=== PATIENT | female | born 1955 | race Hispanic/Latino ===

== ENCOUNTER 2024-05-20 07:10 | Observation (INO) | payer OTHER ==
[2024-05-18 13:03] LABS: BASOPHILS # (AUTO) 0.05 K/uL (0.00-0.20); BASOPHILS % (AUTO) 0.7 % (0.0-5.0); EOSINOPHILS # (AUTO) 0.24 K/uL (0.00-0.70); EOSINOPHILS % (AUTO) 3.2 % (0.0-8.0); HEMATOCRIT 39.8 % (36-48); IMMATURE GRANULOCYTE ABSOLUTE 0.03 K/uL (0-1); LYMPHOCYTES # (AUTO) 2.1 K/uL (1.0-4.8); LYMPHOCYTES % (AUTO) 27.4 % (21.0-51.0); MEAN CORPUSCULAR HEMOGLOBIN 32.3 pg (27.0-33.0); MEAN CORPUSCULAR HGB CONC 33.7 g/dL (32.0-36.0); MEAN CORPUSCULAR VOLUME 95.9 fL (79-99); MONOCYTES # (AUTO) 0.8 K/uL (0.1-1.0); MONOCYTES % (AUTO) 10.7 % (3.0-13.0); NEUTROPHILS # (AUTO) 4.3 K/uL (1.8-7.7); NEUTROPHILS % (AUTO) 57.6 % (40.0-77.0); PLATELET COUNT (AUTO) 119 K/uL (130-400); RED BLOOD CELL COUNT(AUTO) 4.15 MIL/uL (4.00-5.50); RED CELL DISTRIBUTION WIDTH 12.3 % (11.0-15.5); WHITE BLOOD COUNT (AUTO) 7.5 K/uL (4.8-10.8)
[2024-05-18 13:08] LABS: CREATININE 0.6 mg/dL (0.5-1.0); POTASSIUM 3.3 mmol/L (3.5-5.1)
[2024-05-18 13:14] LABS: INR 1.09 (0.85-1.15); PROTHROMBIN TIME 11.7 SEC (9.6-11.6)
[2024-05-18 13:15] LABS: PARTIAL THROMBOPLASTIN TIME 28.3 SEC (26.3-35.5)
[2024-05-18 13:27] VITALS: BP 106/58; PULSE 75; RESP 18; TEMP 97
[~2024-05-20] VITALS: Ht 160 cm; Wt 77.3 kg
[2024-05-20] VITALS (30 sets, daily range): BP systolic 88–130; BP diastolic 41–73; PULSE 64–88; RESP 12–20; TEMP 96.9–98.5; O2SAT 96
[~2024-05-20 07:10] MED LIST: ERGO500093 PO; PANT40TA54 PO
[2024-05-20] MEDS: LACTATED RINGERS 1000ML 1,000 ML IV ONE (07:57)
[2024-05-20] MEDS: ceFAZolin SODIUM 2 GM VIAL ONE (07:57)
[2024-05-20] MEDS: dexaMETHasone SOD PHOSPHATE 4 MG/ML 1ML VIAL ONE (09:19)
[2024-05-20] MEDS: MIDAZOLAM HCL 1 MG/ML 2ML VIAL ONE (10:28)
[2024-05-20] MEDS: acetaMINOPHEN 1,000 MG/100 ML VIAL IV ONE (10:28)
[2024-05-20] MEDS: hydroMORPHone 1 MG INJ ONE (10:28)
[2024-05-20] MEDS: FAMOTIDINE 20MG VIAL IV ONE (10:28)
[2024-05-20] MEDS ORDERED: rocuRONium bROMide 10MG/1ML 5ML VL ONE (10:35)
[2024-05-20] MEDS ORDERED: LIDOCAINE PF 100MG/5ML (2%) SYRINGE 5ML ONE (10:35)
[2024-05-20] MEDS ORDERED: ondanSETRON 4MG INJ ONE (10:35)
[2024-05-20] MEDS ORDERED: proPOFol 10 MG/ML 20ML VIAL IV ONE (10:35)
[2024-05-20] MEDS ORDERED: FENTanyl CITRate PF 50 MCG/1 ML 5ML AMP IV ONE (10:36)
[2024-05-20] MEDS ORDERED: SUCCINYLCHOLINE CHLORIDE 20 MG/ML 10 ML VIAL ONE (10:36)
[2024-05-20] MEDS: BUPIvacaine/PF 0.5% 30ML VIAL ONE (11:16)
[2024-05-20] MEDS ORDERED: phenylEPHRINE HCL 10 MG/ML 1ML VIAL IV ONE (11:30)
[2024-05-20] MEDS ORDERED: 0.9%NACL 10ML VIAL ONE (11:32)
[2024-05-20] MEDS ORDERED: NEOSTIGMINE METHYLSULFATE 1MG/ML IV ONE (12:47)
[2024-05-20] MEDS ORDERED: GLYCOPYRROLATE 0.2 MG/ML 5 ML VIAL ONE (12:47)
[2024-05-20] MEDS ORDERED: PROCHLORPERAZINE 10MG/2ML INJ IV PRN (13:30)
[2024-05-20] MEDS ORDERED: ondanSETRON 4MG INJ IVP PRN (13:30)
[2024-05-20] MEDS ORDERED: HYDROcod/acetaMINOPHEN 7.5/325 MG 15 ML UDCUP PO PRN (13:30)
[2024-05-20] MEDS: LACTATED RINGERS 1000ML 1,000 ML IV SCH (17:51)
[2024-05-20] MEDS: ketOROlac 15MG/ML VIAL (15MG/ML) IV PRN (22:05)
[2024-05-21] VITALS: BP 127/58; PULSE 87; RESP 20; TEMP 98.6
[2024-05-21 04:00] VITALS: BP 103/55; PULSE 81; RESP 20; TEMP 98
[2024-05-21 08:00] VITALS: BP 128/67; PULSE 86; RESP 18; TEMP 98.5; O2SAT 99
[2024-05-21] MEDS: ENOXAPARIN SODIUM 30 MG/0.3 ML SQ SCH (10:00)
[2024-05-21] MEDS: hydroMORPHone 0.5 MG SYG (0.5MG/0.5ML) IVP PRN (11:05)
[2024-05-21 11:35] VITALS: BP 120/64; PULSE 88; RESP 19; TEMP 98.4
[2024-05-21 16:00] VITALS: BP 125/75; PULSE 78; RESP 18; TEMP 98.3
== END 2024-05-21 17:50 | disposition home or self-care (01) ==
LOC: DAH 07:10 → DAHIP 07:11 → INTOOBSV 07:11 → 4BH 15:30
PROVIDERS: ADMIT Surgery; ATTEND Surgery
DX: K44.9 Diaphragmatic hernia without obstruction or gangrene (principal); K21.00 Gastro-esophageal reflux disease with esophagitis, without bleeding; K25.9 Gastric ulcer, unspecified as acute or chronic, without hemorrhage or perforation; E66.9 Obesity, unspecified; D69.3 Immune thrombocytopenic purpura; M19.90 Unspecified osteoarthritis, unspecified site; Z86.2 Personal history of diseases of the blood and blood-forming organs and certain disorders involving the immune mechanism; Z79.899 Other long term (current) drug therapy; Z68.30 Body mass index [BMI] 30.0-30.9, adult
CPT/HCPCS: 80048; 85025; 85610; 85730; 86850; 86900; 86901; 36415; 93005; 43282; 96374; 97161; 96375; 97116; 97530 ×2; A6260; J1100; A4663; A4215 ×2; J7120; J3490 ×3; J3010; J1171 ×2; J0330; J2003; J2250; J2704; J2405; J2710; J0665; J1885 ×2; J2371; J0690; C1781; A4930 ×2; A4213; A4222; A4221; A4216; G0378; J1650; A4223 ×2; A4600; 43235; G8980-CH; G8983-CI